=== PATIENT | male | born 1955 | race Caucasian/White ===

== ENCOUNTER 2020-12-28 09:41 | Inpatient (IN) | payer MEDICARE, BC ==
[2020-12-28] MEDS ORDERED: Fluticasone Propionate Nasal Spray 16 GM Bottle NASBOTH PRN (15:40)
[2020-12-28] MEDS ORDERED: Acetaminophen 500 MG Tab PO PRN (15:40)
[2020-12-28] MEDS ORDERED: Carboxymethylcellulose Sodium 0.5% Ophth Soln 15 ML Bottle EYEBOTH PRN (16:00)
[2020-12-28] MEDS: Omeprazole 20 MG Cap.CR PO SCH (17:22)
[2020-12-28] MEDS: Gabapentin 300 MG Cap PO SCH ×2 (17:22→20:22)
[2020-12-28] MEDS: Acetaminophen/oxyCODONE 325-5 MG Tab PO PRN (17:53)
[2020-12-28] MEDS ORDERED: Menthol 7.6 MG Sugar Free Lozenge PO PRN (18:24)
[2020-12-28] MEDS: guaiFENesin/Dextromethorphan 100-10 MG/5 ML Soln 5 ML Cup PO PRN (19:08)
[2020-12-28] MEDS: Pramipexole 0.5 MG Tab PO SCH (19:08)
[2020-12-28] MEDS: Fish Oil/Omega-3 Fatty Acids 1 Gm Cap PO SCH (20:22)
[2020-12-28] MEDS: Magnesium Oxide 500 MG Tab PO SCH (20:22)
[2020-12-28] MEDS: Primidone 50 MG Tab PO SCH (20:22)
[2020-12-28] MEDS: atorvaSTATin 40 MG Tab PO SCH (20:23)
[2020-12-28] MEDS: Metoprolol Tartrate 50 MG Tab PO SCH (20:23)
[2020-12-28] MEDS: Simethicone 80 MG Tab.Chew PO PRN (21:56)
[2020-12-29] MEDS: Gabapentin 300 MG Cap PO SCH ×5 (00:09→19:32)
[2020-12-29] MEDS: Simethicone 80 MG Tab.Chew PO PRN ×4 (00:09→19:37)
[2020-12-29] MEDS: guaiFENesin/Dextromethorphan 100-10 MG/5 ML Soln 5 ML Cup PO PRN ×4 (00:09→21:40)
[2020-12-29] MEDS: FLUTICASONE PROPIONATE NASBOTH PRN ×2 (00:17→21:42)
[2020-12-29] MEDS: Metoprolol Tartrate 50 MG Tab PO SCH ×2 (08:20→21:40)
[2020-12-29] MEDS: Potassium Chloride 20 MEQ Tab.ER PO SCH (08:20)
[2020-12-29] MEDS: metFORMIN 500 MG Tab.ER PO SCH (08:20)
[2020-12-29] MEDS: Aspirin 81 MG Tab.EC PO SCH (08:20)
[2020-12-29] MEDS: Cyanocobalamin (Vitamin B12) 500 MCG Tab PO SCH (08:21)
[2020-12-29] MEDS: Omeprazole 20 MG Cap.CR PO SCH ×2 (08:21→17:04)
[2020-12-29] MEDS: Multivitamins with Minerals/Iron/Folic Acid/Lycopene Tab PO SCH (08:21)
[2020-12-29] MEDS: Losartan 50 MG Tab PO SCH (08:21)
[2020-12-29] MEDS: Fish Oil/Omega-3 Fatty Acids 1 Gm Cap PO SCH ×2 (08:21→21:37)
[2020-12-29] MEDS: Primidone 50 MG Tab PO SCH ×2 (08:22→21:37)
[2020-12-29] MEDS: Magnesium Oxide 500 MG Tab PO SCH ×3 (08:22→21:37)
[2020-12-29] MEDS: Tamsulosin 0.4 MG Cap.ER PO SCH (08:22)
[2020-12-29] MEDS: Pramipexole 0.5 MG Tab PO SCH ×2 (08:28→19:32)
[2020-12-29] MEDS: Acetaminophen/oxyCODONE 325-5 MG Tab PO PRN ×2 (08:29→21:39)
[2020-12-29] MEDS: [UNRECOGNIZED DRUG - REMARK] PO SCH (08:34)
[2020-12-29 08:35] LABS: ANION GAP 11.8 mmol/L (5-15); CHLORIDE,CL 99 mmol/L (98-107); SODIUM,NA 139 mmol/L (136-145)
[2020-12-29] MEDS: hydrOXYzine HCl 25 MG Tab PO PRN ×2 (08:42→21:43)
--- NOTE | 2020-12-29 09:22 | PCM.HP.2 ---
H&P History of Present Illness - General Date of Service: 12/29/20 Admit Problem/Dx: Admission Diagnosis/Problem Admission Diagnosis/Problem "Edema, generalized " Source of Information: Patient, Old Records, RN Notes Reviewed History Limitations: Reports: No Limitations Generalized Pain Score (Numeric/FACES): 3 - Related Data Allergies/Adverse Reactions: Allergies Allergy/AdvReac Type Severity Reaction Status Date / Time Penicillins Allergy Swelling Verified 12/29/20 05:42 temazepam [From Restoril] Allergy confusion, Verified 12/29/20 05:42 agitation Home Medications: Home Meds Multivitamin [Daily Multiple Vitamin] 1 tab PO DAILY 10/01/16 [History] Losartan Potassium 100 mg PO DAILY 03/06/20 [History] [place]-3S/DHA/Epa/Fish Oil [[place]-3 Fish Oil 1,000 mg Sfgl] 1,000 mg PO BID 03/06/20 [History] Omeprazole 40 mg PO BIDMEALS 03/06/20 [History] Pramipexole [Mirapex] 0.25 mg PO Q12HR 03/06/20 [History] Primidone 50 mg PO Q12HR 03/06/20 [History] hydrOXYzine HCL [Hydroxyzine HCl] 25 mg PO Q6HR PRN 03/06/20 [History] Gabapentin [Neurontin] 600 mg PO 5XDAY@00,08,12,16,20 12/24/20 [History] Loperamide HCl [Imodium A-D] 2 mg PO ASDIRECTED 12/24/20 [History] Fluticasone Propionate [Flonase] 1 spray NASBOTH BID PRN 12/25/20 [History] Acetaminophen [Acetaminophen Extra Strength] 1,000 mg PO Q6HR PRN 12/28/20 [History] Aspirin [Halfprin] 81 mg PO DAILY 12/28/20 [History] Carboxymethylcellulose Sodium [Artificial Tears] 1 drop EYEBOTH Q4HR PRN 12/28/20 [History] Cyanocobalamin (Vitamin B-12) [Vitamin B-12] 250 mcg PO DAILY 12/28/20 [History] Iron Polysaccharide Complex [Poly-Iron] 150 mg PO ASDIRECTED 12/28/20 [History] Magnesium 500 mg BID 12/28/20 [History] Metoprolol Tartrate 100 mg PO BID 12/28/20 [History] Ondansetron [Zofran ODT] 4 mg PO Q4HR PRN 12/28/20 [History] Potassium Chloride 20 meq PO DAILY 12/28/20 [History] Tamsulosin [Tamsulosin 24 Hr] 0.4 mg PO DAILY 12/28/20 [History] Torsemide [Demadex] 20 mg PO DAILY 12/28/20 [History] atorvaSTATin Calcium [Lipitor] 40 mg PO BEDTIME 12/28/20 [History] metFORMIN HCl [Metformin HCl ER] 1,500 mg PO DAILY 12/28/20 [History] oxyCODONE HCl/Acetaminophen [Oxycodone-Acetaminophen 5-325] 1 each PO BID PRN 12/28/20 [History] Past Medical History HEENT History: Reports: Impaired Vision, Sinusitis, Other (See Below) Other HEENT History: Patient wears reading glasses. No diabetic retinopathy. Chronic bilateral tinnitus. Cardiovascular History: Reports: Arrhythmia, CAD, Cardiomyopathy, Heart Failure, High Cholesterol, Hypertension, [place], Syncope, Other (See Below) Other Cardiovascular History: First-degree AV block. Non-STEMI on 10/02/2016 with no procedures performed, including angiogram, etc.. Dyslipidemia. Recurrent syncopal episodes in 2016 possibly secondary to his heart disease as above. Respiratory History: Reports: Bronchitis, Recurrent, Intubation, Previous, Sleep Apnea, SOB, Other (See Below) Other Respiratory History: Patient does not use CPAP. Gastrointestinal History: Reports: Cholelithiasis, Colon Polyp, Diverticulosis, GERD, Other (See Below) Other Gastrointestinal History: Chronic ascites. Necrotic cholelithiasis with borderline sepsis in March 2020. Recurrent multiple colonic polypsbenign?. Benign hepatic cysts by CT scan. Genitourinary History: Reports: BPH, Chronic Renal Insuffiency, Diabetic Nephropathy, Prostate Disorder, Urinary Incontinence Musculoskeletal History: Reports: Arthritis, Back Pain, Chronic, Neck Pain, Ch ronic, Osteoarthritis Neurological History: Reports: Neuropathy, Diabetic, Neuropathy, Peripheral, Other (See Below) Other Neuro History: Benign resting tremor. Psychiatric History: Reports: Addiction, Anxiety, Depression, Other (See Below) Other Psychiatric History: Chronic narcotic use secondary to chronic pain syndrome and neuropathy. Endocrine/Metabolic History: Reports: Diabetes, Type II, Obesity/BMI 30+, Other (See Below) Other Endocrine/Metabolic History: Morbid obesity. Hypocalcemia. Hyponatremia. Immunologic History: Reports: None Oncologic (Cancer) History: Reports: None Dermatologic History: Reports: Other (See Below) Other Dermatologic History: Dry skin - Infectious Disease History Infectious Disease History: Reports: Chicken Pox, Measles, Mumps - Past Surgical History Head Surgeries/Procedures: Reports: None HEENT Surgical History: Reports: Adenoidectomy, Oral Surgery, Tonsillectomy, Other (See Below) Other HEENT Surgeries/Procedures: [place] teeth extraction x4. Additional teeth extractions. Tonsillectomy and adenoidectomy at age 4. Cardiovascular Surgical History: Reports: None Respiratory Surgical History: Reports: None GI Surgical History: Reports: Cholecystectomy, Colonoscopy, Polypectomy, Other (See Below) Other GI Surgeries/Procedures: Multiple polypectomies for benign disease with last colonoscopy in 2018. Male Surgical History: Reports: Circumcision, Other (See Below) Other Male Surgeries/Procedures: Circumcision as an . Bilateral hydrocele repair in about 2009. Endocrine Surgical History: Reports: None Neurological Surgical History: Reports: None Musculoskeletal Surgical History: Reports: Joint Replacement, Knee Replacement, Other (See Below) Other Musculoskeletal Surgeries/Procedures:: Bilateral TKA in 2014. Right thumb tendon repair in about 1979. Oncologic Surgical History: Reports: None Dermatological Surgical History: Reports: None - Past Imaging History Past Imaging History: Reports: CAT Scan (CT of the abdomen and pelvis on 03/06/2020 and 09/27/2014.). Denies: Angiography, Cardiac Echo Social & Family History - Family History HEENT: Reports: None Cardiac: Reports: Arrhythmia, Hypertension, Other (See Below) Other Cardiac Family History: Brother with hyperlipidemia. Brother with jose tricular tachycardia on subsequent asystole? Respiratory: Reports: None GI: Reports: Colon Polyps, Other (See Below) Other GI Family History: Mother with colon cancer as below. : Reports: None OBGYN: Reports: None Musculoskeletal: Reports: None Neurological: Reports: CVA, Parkinson's, Other (See Below) Other Neurological Family History: Father with Parkinson's disease. Brother with recurrent CVA. Endocrine/Metabolic: Reports: None Hematologic: Reports: None Immunologic: Reports: None Dermatologic: Reports: None Oncologic: Reports: Colon, Lymphoma, Ovarian, Skin, Uterine, Other (See Below) Other Oncologic Family History: Sister with fatal lymphoma in her 60s. Another sister with unknown type of skin cancer and breast cancer. Mother with multiple cancers including breast cancer, ovarian cancer and colon cancer x2 with fatal colon surgery. - Tobacco Use Tobacco Use Status *Q: Never Tobacco User - Caffeine Use Caffeine Use: Reports: Coffee, Soda - Alcohol Use Days Per Week of Alcohol Use: 5 Number of Drinks Per Day: 4 Total Drinks Per Week: 20 - Recreational Drug Use Recreational Drug Use: No - Living Situation & Occupation Living situation: Reports: (1982, 2 children), with Family () Occupation: Disabled (Disabled secondary to his chronic neuropathy, osteoarthritis, chronic pain syndrome. Retired [employer].) H&P Review of Systems - Review of Systems: Review Of Systems: See Below General: Reports: Weakness, Fatigue. Denies: Fever, Chills, Weight Loss HEENT: Reports: Rhinitis, Post Nasal Drip. Denies: Sinus Congestion, Sore T hroat Pulmonary: Reports: Cough, Sputum. Denies: Shortness of Breath, Wheezing Cardiovascular: Reports: Edema (per baseline). Denies: Chest Pain, Pa lpitations, Orthopnea, PND Gastrointestinal: Reports: Other (belching). Denies: Abdominal Pain, Constipation, Diarrhea, Nausea Genitourinary: Denies: Dysuria, Frequency, Burning, Urgency, Hematuria, Flank Pain Skin: Reports: No Symptoms Psychiatric: Reports: No Symptoms Neurological: Reports: Numbness, Tremors, Weakness, Other (neuropathy to BLE and bilateral hands). Denies: Confusion, Dizziness Hematologic/Lymphatic: Reports: No Symptoms Immunologic: Reports: No Symptoms Exam - Exam Exam: See Below - Vital Signs Vital Signs: Last Vital Signs Temp 97.6 F 12/29/20 09:00 Pulse 68 12/29/20 09:00 Resp 20 12/29/20 09:00 BP 147/94 H 12/29/20 09:00 Pulse Ox 95 12/29/20 09:00 Weight: 340 lb 4.8 oz - Exam General: Alert, Oriented HEENT: Posterior Pharynx Clear Neck: Supple, Trachea Midline Lungs: Clear to Auscultation, Normal Respiratory Effort Cardiovascular: Regular Rate, Regular Rhythm GI/Abdominal Exam: Normal Bowel Sounds, Soft, Non-Tender, Other (belching) (Male) Exam: Deferred Rectal (Males) Exam: Deferred Extremities: Pedal Edema (2+ pitting edema to BLE) Skin: Warm, Dry, Intact Neuro Extensive - Mental Status: Alert, Oriented x3 Neuro Extensive - Motor, Sensory, Reflexes: Abnormal Sensation, Abnormal Light Touch, Tremor (bilateral upper extremities), Motor/Sensory Deficits (lack on sensation to Bilateral lower extremities from knee distally) Psychiatric: Alert, Normal Affect Physical Exam Comments:: generalized weakness, deconditioning - Patient Data Lab Results Last 24 hrs: Laboratory Results - last 24 hr 12/28/20 12/29/20 Range/Units 17:20 08:00 Sodium 139 (136-145) mmol/L Potassium 3.6 (3.5-5.1) mmol/L Chloride 99 (98-107) mmol/L Carbon Dioxide 31.8 (21.0-32.0) mmol/L Anion Gap 11.8 (5-15) mmol/L BUN 6 L (7-18) mg/dL Creatinine 1.06 (0.51-1.17) mg/dL Est Cr Clr Drug Dosing 76.26 mL/min Estimated GFR (MDRD) > 60 mL/min Glucose 116 (70-140) mg/dL POC Glucose 143 H (74-100) mg/dL Calcium 8.2 L (8.7-10.3) mg/dL Magnesium 1.7 L (1.8-2.4) mg/dL Total Bilirubin 0.5 (0.2-1.0) mg/dL AST 54 H (15-37) U/L ALT 27 (14-63) U/L Alkaline Phosphatase 213 H (46-116) U/L Total Protein 6.6 (6.4-8.2) g/dL Albumin 2.24 L (3.40-5.00) g/dL Result Diagrams: 12/29/20 08:00 Sepsis Event Note - Evaluation Sepsis Screening Result: No Definite Risk - Focused Exam Vital Signs: Vital Signs Temp Pulse Pulse Resp BP BP Pulse Ox 12/29/20 09:00 97.6 F 68 20 147/94 H 95 12/29/20 08:21 147/94 H 12/29/20 08:20 68 147/94 H - Problem List (1) Physical deconditioning SNOMED Code(s): 62187715594285 ICD Code: R53.81 - OTHER MALAISE Status: Acute Current Visit: Yes (2) Weakness SNOMED Code(s): 09811934 ICD Code: R53.1 - WEAKNESS Status: Acute Current Visit: Yes (3) Hypomagnesemia SNOMED Code(s): 532972722 ICD Code: E83.42 - HYPOMAGNESEMIA Status: Acute Priority: Medium Current Visit: No Onset Date: 12/24/20 Problem Details: Newly diagnosed. Magnesium sulfate 4 g IV initiated shortly after admission with initiation of oral magnesium oxide therapy on 12/25 a.m. Note additional IV magnesium infusion shortly prior to patient's transfer as above. Continue to observe closely by accepting providers. (4) Hypocalcemia SNOMED Code(s): 4718029 ICD Code: E83.51 - HYPOCALCEMIA Status: Chronic Priority: Medium Current Visit: No Problem Details: Observe for now. Chronic problem. Observe closely by accepting providers. Problem List Initiated/Reviewed/Updated: Yes Orders Last 24hrs: Active Orders 24 hr Category Date Time Status Patient Status [ADT] Routine ADT 12/28/20 12:50 Active Blood Glucose Check, Bedside [RC] BIDMEALS Care 12/28/20 12:50 Active Communication Order [RC] DAILY Care 12/28/20 12:49 Active Height and Weight [RC] 0700 Care 12/28/20 12:53 Active Incentive Spirometry [RT Incentive Spirometry] [RC] Care 12/28/20 23:26 Active Q2HWA Intake and Output [RC] 1400,2200,0600 Care 12/28/20 12:50 Active Oxygen Therapy [RC] PRN Care 12/28/20 12:50 Active Up With Assistance [RC] DAILY Care 12/28/20 12:50 Active Vital Signs [RC] Q12HR Care 12/28/20 12:50 Active PT Evaluation and Treatment [CONS] Routine Cons 12/28/20 12:50 Active 2 Gram Sodium Diet [DIET] Diet 12/29/20 Breakfast Active Acetaminophen [Tylenol Extra Strength] Med 12/28/20 15:40 Active 500 mg PO Q6H PRN Acetaminophen/oxyCODONE [Percocet 325-5 MG] Med 12/28/20 15:40 Active 1 tab PO BID PRN Aspirin [Halfprin] Med 12/29/20 09:00 Active 81 mg PO DAILY Carboxymethylcellulose Sodium [Refresh Tears 0.5%] Med 12/28/20 16:00 Active 1 ml EYEBOTH Q4HR PRN Cyanocobalamin (Vitamin B12) [Vitamin B12] Med 12/29/20 09:00 Active 250 mcg PO DAILY Dextromethorphan/guaiFENesin [Robitussin DM] Med 12/28/20 18:15 Active 10 ml PO Q6H PRN FA/Lycopene/Lut/MV,Ca,Iron,Min [Centrum] Med 12/29/20 09:00 Active 1 tab PO DAILY Fish Oil/[place]-3 Fatty Acids [Fish Oil] Med 12/28/20 21:00 Active 1 gm PO BID Fluticasone Propionate [Flonase] Med 12/28/20 21:00 Active 0 gm NASBOTH BID PRN Gabapentin [Neurontin] Med 12/28/20 16:00 Active 600 mg PO 5XDAY@00,08,12,16,20 Iron Polysaccharides Complex [Ferrex 150] Med 12/30/20 09:00 Active 150 mg PO Q48H Loperamide [Imodium] Med 12/28/20 16:05 Active 2 mg PO ASDIRECTED PRN Losartan [Cozaar] Med 12/29/20 09:00 Active 100 mg PO DAILY Magnesium Oxide Med 12/28/20 21:00 Active 500 mg PO BID Menthol [[place] Sugar Free] Med 12/28/20 18:24 Active 1 stephen PO ASDIRECTED PRN Metoprolol Tartrate [Lopressor] Med 12/28/20 21:00 Active 100 mg PO BID Non-Formulary Medication [NF Drug] Med 12/29/20 09:00 Active 1 each PO DAILY Omeprazole Med 12/28/20 17:30 Active 40 mg PO 0730,1730 Ondansetron [Zofran ODT] Med 12/28/20 15:40 Active 4 mg PO Q4HR PRN Potassium Chloride [Klor-Con M20] Med 12/29/20 09:00 Active 20 meq PO DAILY Pramipexole [Mirapex] Med 12/28/20 19:00 Active 0.25 mg PO 0900,1900 Primidone [Mysoline] Med 12/28/20 21:00 Active 50 mg PO BID Simethicone Med 12/28/20 21:31 Active 80 mg PO QID PRN Tamsulosin [Flomax] Med 12/29/20 09:00 Active 0.4 mg PO DAILY atorvaSTATin [Lipitor] Med 12/28/20 21:00 Active 40 mg PO BEDTIME hydrOXYzine HCL [Atarax] Med 12/28/20 15:40 Active 25 mg PO Q6HR PRN metFORMIN [Glucophage XR] Med 12/29/20 09:00 Active 1,500 mg PO DAILY Resuscitation Status Routine Resus Stat 12/28/20 12:50 Ordered Medication Orders Acetaminophen (Tylenol Extra Strength) 500 mg PO Q6H PRN PRN Reason: Pain (mild 1-3) Artificial Tears (Refresh Tears 0.5%) 1 ml EYEBOTH Q4HR PRN PRN Reason: Dry Eyes Aspirin (Halfprin) 81 mg PO DAILY [facility] Last Admin: 12/29/20 08:20 Dose: 81 mg Documented by: ABI Atorvastatin Calcium (Lipitor) 40 mg PO BEDTIME [facility] Last Admin: 12/28/20 20:23 Dose: 40 mg Documented by: LIA Cyanocobalamin (Vitamin B12) 250 mcg PO DAILY [facility] Last Admin: 12/29/20 08:21 Dose: 250 mcg Documented by: ABI Fish Oil (Fish Oil) 1 gm PO BID [facility] Last Admin: 12/29/20 08:21 Dose: 1 gm Documented by: Admin: 12/28/20 20:22 Dose: 1 gm Documented by: LIA Fluticasone Propionate (Flonase) 0 gm NASBOTH BID PRN PRN Reason: Allergies Last Admin: 12/29/20 00:17 Dose: 1 spray Documented by: LIA Gabapentin (Neurontin) 600 mg PO 5XDAY@00,08,12,16,20 [facility] Last Admin: 12/29/20 08:21 Dose: 600 mg Documented by: Admin: 12/29/20 00:09 Dose: 600 mg Documented by: Admin: 12/28/20 20:22 Dose: 600 mg Documented by: Admin: 12/28/20 17:22 Dose: 600 mg Documented by: CASS Guaifenesin/Phenylephrine HCl (Robitussin Dm) 10 ml PO Q6H PRN PRN Reason: Cough Last Admin: 12/29/20 00:09 Dose: 10 ml Documented by: Admin: 12/28/20 19:08 Dose: 10 ml Documented by: CASS Hydroxyzine HCl (Atarax) 25 mg PO Q6HR PRN PRN Reason: Nausea Last Admin: 12/29/20 08:42 Dose: 25 mg Documented by: ABI Loperamide HCl (Imodium) 2 mg PO ASDIRECTED PRN PRN Reason: DIARRHEA Losartan Potassium (Cozaar) 100 mg PO DAILY [facility] Last Admin: 12/29/20 08:21 Dose: 100 mg Documented by: ABI Magnesium Oxide (Magnesium Oxide) 500 mg PO BID [facility] Last Admin: 12/29/20 08:22 Dose: 500 mg Documented by: Admin: 12/28/20 20:22 Dose: 500 mg Documented by: LIA Menthol ([place] Sugar Free) 1 stephen PO ASDIRECTED PRN PRN Reason: Cough Metformin HCl (Glucophage Xr) 1,500 mg PO DAILY [facility] Last Admin: 12/29/20 08:20 Dose: 1,500 mg Documented by: ABI Metoprolol Tartrate (Lopressor) 100 mg PO BID [facility] Last Admin: 12/29/20 08:20 Dose: 100 mg Documented by: Admin: 12/28/20 20:23 Dose: 100 mg Documented by: LIA Multivitamins/Minerals (Centrum) 1 tab PO DAILY [facility] Last Admin: 12/29/20 08:21 Dose: 1 tab Documented by: ABI Torsemide 20 Mg Tab (- Non Form) 1 each PO DAILY [facility] Last Admin: 12/29/20 08:34 Dose: 1 each Documented by: ABI Omeprazole (Omeprazole) 40 mg PO 0730,1730 [facility] Last Admin: 12/29/20 08:21 Dose: 40 mg Documented by: Admin: 12/28/20 17:22 Dose: 40 mg Documented by: CASS Ondansetron HCl (Zofran Odt) 4 mg PO Q4HR PRN PRN Reason: Nausea/Vomiting Oxycodone/Acetaminophen (Percocet 325-5 Mg) 1 tab PO BID PRN PRN Reason: Pain (severe 7-10) Last Admin: 12/29/20 08:29 Dose: 1 tab Documented by: Admin: 12/28/20 17:53 Dose: 1 tab Documented by: CASS Polysaccharide Iron Complex (Ferrex 150) 150 mg PO Q48H [facility] Potassium Chloride (Klor-Con M20) 20 meq PO DAILY [facility] Last Admin: 12/29/20 08:20 Dose: 20 meq Documented by: ABI Pramipexole Dihydrochloride (Mirapex) 0.25 mg PO 0900,1900 [facility] Last Admin: 12/29/20 08:28 Dose: 0.25 mg Documented by: Admin: 12/28/20 19:08 Dose: 0.25 mg Documented by: CASS Primidone (Mysoline) 50 mg PO BID [facility] Last Admin: 12/29/20 08:22 Dose: 50 mg Documented by: Admin: 12/28/20 20:22 Dose: 50 mg Documented by: LIA Simethicone (Simethicone) 80 mg PO QID PRN PRN Reason: Heartburn and/or Stomach upset Last Admin: 12/29/20 08:33 Dose: 80 mg Documented by: Admin: 12/29/20 00:09 Dose: 80 mg Documented by: Admin: 12/28/20 21:56 Dose: 80 mg Documented by: LIA Tamsulosin HCl (Flomax) 0.4 mg PO DAILY [facility] Last Admin: 12/29/20 08:22 Dose: 0.4 mg Documented by: ABI Assessment/Plan Comment:: This is a 65 year old male admitted to the 12/28/2020 for swing bed and rehabilitative cares. Patient presented to [facility] on 12/24/2020 for progressive shortness of breath and weakness. He was admitted at that time with a primary problem of acute CHF exacerbation with also noted el ectrolytes disturbances: hypokalemia, hypomagnesemia, hypocalcemia. Patient was treated for CHF exacerbation with IV diuresis (Lasix) and electrolyte replacement. On the night of 12/25/2020 patient began having long runs of ventricular tachycardia with a torsades de pointes pattern. He reportedly had 7 of these episodes which were completely asymptomatic with no associated chest pain or other anginal symptoms. Patient was transferred to [facility] on 12/26/2020 due to concerns of recurrent Torsades. Work up showed that one lead showed torsades pattern with other leads showed NSR in 80's. He was asymptomatic before, during, and after the episode. He did not have episodes of torsades or concerning events on telemetry. Cardiology and EP were consulted and reviewed and felt episodes were due to artifact and not true VT. Despite artifact, aggressive electrolyte monitoring and replacement recommended. During hospitalization, UA was done with noted microscopic hematuria >30 RBCs. Patient working with PT and OT during hospitalization and due to general deconditioning and weakness continued physi julio therapy at a low intensity setting upon discharge recommended. Hospitalization problems: #Deconditioning/weakness- PT for ongoing therapy. #Microscopic hematuria- noted during recent hospitalization with RBCs >30. No reported gross hematuria. last UA in 2016 with RBC 3-5. no other UA on file. will need repeat UA in 1 month. If still noted microscopic hematuria will need further hematuria work-up as an outpatient. #hypomagnesemia- Magnesium 1.7 today. On PO magnesium supplementation mag ox 500 mg BID, will increase to TID. patient tolerating well without GI side effects # hypokalemia- stable. on supplementation. # Cough- likely viral URI. vitals stable. afebrile. normal O2. Lungs clear. Recent COVID test negative. chest x-ray 12/26/2020- Low lung volume. No pulmonary edema or infiltrate. Continue Robitussin PRN. may use cough drops PRN. Chronic conditions: # HFrEF: Continue Torsemide 20mg daily. Daily weights. Echo done 12/26/2020 with normal LV systolic function. EF improved to 55%. unable to assess LV diastolic function. ALAINA stockings for edema # HTN: Continue Losartan 100mg,metoprolol tartrate 100mg BID. # GERD with esophagitis: Omeprazole 40mg BID.Controlled. # Hepatic steatosis/ Transaminitis / elevated alkaline phosphatase: chronic alcohol use/abuse. no evidence of withdrawal or DT symptoms during recent hos pitalization. continue to monitor withdrawal symptoms. # CKD, stage 3 # BPH: Tamsulosin 0.4mg daily # Anemia / Macrocytosis: Niferex every other day. B12 or folate not deficient. History of alcohol abuse # DMT2: Controlled. Metformin 1000mg daily. Last A1C 5.7. # HLD: Atorvastatin 40mg. # Hypocalcemia # Obesity- BMI 46 # RLS: Pramipexole 0.25mgBID.Iron supplementation. Controlled. # Tremor: Primidone 50mg BID. # Neuropathy / Chronic lumbar back pain: On pain contract with Dr. Lizzy lund. Percocet was receiving QID in [facility] however was previously on BID dosing. patient reports increased pain/discomfort and neuropathic pain. Will change to TID PRN (along with hydroxyzine 25mg prn), gabapentin 600mg 5x/d, acetaminophen 1000mg PO TID.Persistentin upper and lower extremities. Followed by pain management with history facet injection 04/11/19 without improvement and history SLADE 05/10/19 with minimal improvement. Seen by [place] in June 2020 for neuropathy with recommendations to start PT, duloxetine. Patient did not tolerate duloxetine and did not start PT. Misc.medications:B12, fish oil, MV, artificial tears, ondansetron prn. Code: Full Disposition: Swing bed for continued rehab/therapy.
[2020-12-29] MEDS: Acetaminophen 500 MG Tab PO SCH ×2 (13:44→22:00)
[2020-12-29] MEDS: Loperamide 2 MG Cap PO PRN ×2 (18:25→19:29)
[2020-12-29] MEDS: atorvaSTATin 40 MG Tab PO SCH (21:43)
[2020-12-30] MEDS: Gabapentin 300 MG Cap PO SCH ×5 (00:23→19:39)
[2020-12-30] MEDS: Acetaminophen 500 MG Tab PO SCH ×4 (00:57→20:49)
[2020-12-30] MEDS: Simethicone 80 MG Tab.Chew PO PRN ×4 (00:58→20:48)
[2020-12-30] MEDS: Loperamide 2 MG Cap PO PRN ×2 (06:20→20:48)
[2020-12-30] MEDS: guaiFENesin/Dextromethorphan 100-10 MG/5 ML Soln 5 ML Cup PO PRN ×2 (06:27→17:05)
[2020-12-30] MEDS: FLUTICASONE PROPIONATE NASBOTH PRN ×2 (06:28→19:38)
[2020-12-30] MEDS: Omeprazole 20 MG Cap.CR PO SCH ×2 (06:46→17:32)
[2020-12-30] MEDS: Aspirin 81 MG Tab.EC PO SCH (08:12)
[2020-12-30] MEDS: metFORMIN 500 MG Tab.ER PO SCH (08:12)
[2020-12-30] MEDS: Iron Polysaccharides Complex 150 MG Cap PO SCH (08:12)
[2020-12-30] MEDS: Fish Oil/Omega-3 Fatty Acids 1 Gm Cap PO SCH ×2 (08:13→20:48)
[2020-12-30] MEDS: Magnesium Oxide 500 MG Tab PO SCH ×3 (08:13→20:48)
[2020-12-30] MEDS: Potassium Chloride 20 MEQ Tab.ER PO SCH (08:14)
[2020-12-30] MEDS: Primidone 50 MG Tab PO SCH ×2 (08:14→20:48)
[2020-12-30] MEDS: Cyanocobalamin (Vitamin B12) 500 MCG Tab PO SCH (08:14)
[2020-12-30] MEDS: Multivitamins with Minerals/Iron/Folic Acid/Lycopene Tab PO SCH (08:15)
[2020-12-30] MEDS: Losartan 50 MG Tab PO SCH (08:15)
[2020-12-30] MEDS: Tamsulosin 0.4 MG Cap.ER PO SCH (08:15)
[2020-12-30] MEDS: Metoprolol Tartrate 50 MG Tab PO SCH ×2 (08:15→20:48)
[2020-12-30] MEDS: [UNRECOGNIZED DRUG - REMARK] PO SCH (08:16)
[2020-12-30] MEDS: Pramipexole 0.5 MG Tab PO SCH ×2 (08:20→19:39)
[2020-12-30] MEDS: hydrOXYzine HCl 25 MG Tab PO PRN ×2 (09:34→20:57)
[2020-12-30] MEDS: Acetaminophen/oxyCODONE 325-5 MG Tab PO PRN ×2 (09:34→20:54)
[2020-12-30] MEDS: atorvaSTATin 40 MG Tab PO SCH (20:49)
[2020-12-31] MEDS: guaiFENesin/Dextromethorphan 100-10 MG/5 ML Soln 5 ML Cup PO PRN ×3 (00:01→20:36)
[2020-12-31] MEDS: Simethicone 80 MG Tab.Chew PO PRN ×3 (04:17→17:13)
[2020-12-31] MEDS: Omeprazole 20 MG Cap.CR PO SCH ×2 (07:50→17:12)
[2020-12-31] MEDS: [UNRECOGNIZED DRUG - REMARK] PO SCH (08:16)
[2020-12-31] MEDS: Metoprolol Tartrate 50 MG Tab PO SCH ×2 (08:16→20:35)
[2020-12-31] MEDS: metFORMIN 500 MG Tab.ER PO SCH (08:17)
[2020-12-31] MEDS: Magnesium Oxide 500 MG Tab PO SCH ×3 (08:17→20:35)
[2020-12-31] MEDS: Fish Oil/Omega-3 Fatty Acids 1 Gm Cap PO SCH ×2 (08:18→20:35)
[2020-12-31] MEDS: Multivitamins with Minerals/Iron/Folic Acid/Lycopene Tab PO SCH (08:18)
[2020-12-31] MEDS: Acetaminophen 500 MG Tab PO SCH ×3 (08:18→20:35)
[2020-12-31] MEDS: Potassium Chloride 20 MEQ Tab.ER PO SCH (08:19)
[2020-12-31] MEDS: Losartan 50 MG Tab PO SCH (08:19)
[2020-12-31] MEDS: Primidone 50 MG Tab PO SCH ×2 (08:19→21:38)
[2020-12-31] MEDS: Gabapentin 300 MG Cap PO SCH ×6 (08:19→23:27)
[2020-12-31] MEDS: Aspirin 81 MG Tab.EC PO SCH (08:19)
[2020-12-31] MEDS: Tamsulosin 0.4 MG Cap.ER PO SCH (08:20)
[2020-12-31] MEDS: Cyanocobalamin (Vitamin B12) 500 MCG Tab PO SCH (08:20)
[2020-12-31] MEDS: FLUTICASONE PROPIONATE NASBOTH PRN ×2 (08:27→20:00)
[2020-12-31] MEDS: Pramipexole 0.5 MG Tab PO SCH ×2 (08:27→19:57)
[2020-12-31] MEDS: Acetaminophen/oxyCODONE 325-5 MG Tab PO PRN ×2 (10:54→21:18)
[2020-12-31] MEDS: hydrOXYzine HCl 25 MG Tab PO PRN ×2 (10:55→21:19)
[2020-12-31] MEDS: Loperamide 2 MG Cap PO PRN ×2 (11:57→18:59)
[2020-12-31] MEDS: atorvaSTATin 40 MG Tab PO SCH (20:35)
[2021-01-01] MEDS: Simethicone 80 MG Tab.Chew PO PRN ×4 (04:31→20:54)
[2021-01-01] MEDS: guaiFENesin/Dextromethorphan 100-10 MG/5 ML Soln 5 ML Cup PO PRN ×2 (05:51→22:35)
[2021-01-01] MEDS: Omeprazole 20 MG Cap.CR PO SCH ×2 (07:33→17:27)
[2021-01-01] MEDS: Fish Oil/Omega-3 Fatty Acids 1 Gm Cap PO SCH ×2 (08:48→20:53)
[2021-01-01] MEDS: Cyanocobalamin (Vitamin B12) 500 MCG Tab PO SCH (08:48)
[2021-01-01] MEDS: Metoprolol Tartrate 50 MG Tab PO SCH ×2 (08:49→20:58)
[2021-01-01] MEDS: Losartan 50 MG Tab PO SCH (08:49)
[2021-01-01] MEDS: metFORMIN 500 MG Tab.ER PO SCH (08:49)
[2021-01-01] MEDS: Tamsulosin 0.4 MG Cap.ER PO SCH (08:50)
[2021-01-01] MEDS: Potassium Chloride 20 MEQ Tab.ER PO SCH (08:50)
[2021-01-01] MEDS: Magnesium Oxide 500 MG Tab PO SCH ×3 (08:50→20:51)
[2021-01-01] MEDS: Acetaminophen 500 MG Tab PO SCH ×3 (08:50→20:53)
[2021-01-01] MEDS: Gabapentin 300 MG Cap PO SCH ×5 (08:51→23:34)
[2021-01-01] MEDS: Pramipexole 0.5 MG Tab PO SCH ×2 (08:51→20:50)
[2021-01-01] MEDS: Aspirin 81 MG Tab.EC PO SCH (08:51)
[2021-01-01] MEDS: Iron Polysaccharides Complex 150 MG Cap PO SCH (08:51)
[2021-01-01] MEDS: Multivitamins with Minerals/Iron/Folic Acid/Lycopene Tab PO SCH (08:51)
[2021-01-01] MEDS: Primidone 50 MG Tab PO SCH ×2 (08:51→20:52)
[2021-01-01] MEDS: [UNRECOGNIZED DRUG - REMARK] PO SCH (08:52)
[2021-01-01] MEDS: FLUTICASONE PROPIONATE NASBOTH PRN ×2 (09:34→22:30)
[2021-01-01] MEDS: Acetaminophen/oxyCODONE 325-5 MG Tab PO PRN ×2 (10:45→23:34)
[2021-01-01] MEDS: hydrOXYzine HCl 25 MG Tab PO PRN ×2 (10:46→23:35)
[2021-01-01] MEDS: Loperamide 2 MG Cap PO PRN (12:14)
[2021-01-01] MEDS: atorvaSTATin 40 MG Tab PO SCH (20:51)
[2021-01-02] MEDS: Simethicone 80 MG Tab.Chew PO PRN ×3 (03:35→17:59)
[2021-01-02] MEDS: Loperamide 2 MG Cap PO PRN ×3 (05:48→20:28)
[2021-01-02] MEDS: Omeprazole 20 MG Cap.CR PO SCH ×2 (07:42→16:41)
[2021-01-02] MEDS: guaiFENesin/Dextromethorphan 100-10 MG/5 ML Soln 5 ML Cup PO PRN ×2 (07:57→17:59)
[2021-01-02] MEDS: Gabapentin 300 MG Cap PO SCH ×5 (08:06→23:34)
[2021-01-02] MEDS: metFORMIN 500 MG Tab.ER PO SCH (08:07)
[2021-01-02] MEDS: Acetaminophen 500 MG Tab PO SCH ×3 (08:08→20:21)
[2021-01-02] MEDS: Torsemide 20 MG Tab PO SCH (08:56)
[2021-01-02] MEDS: Fish Oil/Omega-3 Fatty Acids 1 Gm Cap PO SCH ×2 (08:57→20:21)
[2021-01-02] MEDS: Metoprolol Tartrate 50 MG Tab PO SCH ×2 (08:58→20:22)
[2021-01-02] MEDS: Losartan 50 MG Tab PO SCH (08:58)
[2021-01-02] MEDS: Aspirin 81 MG Tab.EC PO SCH (08:58)
[2021-01-02] MEDS: Tamsulosin 0.4 MG Cap.ER PO SCH (08:59)
[2021-01-02] MEDS: Primidone 50 MG Tab PO SCH ×2 (08:59→20:22)
[2021-01-02] MEDS: Magnesium Oxide 500 MG Tab PO SCH ×3 (08:59→20:22)
[2021-01-02] MEDS: Pramipexole 0.5 MG Tab PO SCH ×2 (09:06→18:00)
[2021-01-02] MEDS: hydrOXYzine HCl 25 MG Tab PO PRN ×2 (09:07→23:34)
[2021-01-02] MEDS: Acetaminophen/oxyCODONE 325-5 MG Tab PO PRN ×2 (09:07→23:34)
[2021-01-02] MEDS: Potassium Chloride 10 MEQ Tab.ER PO SCH (11:32)
[2021-01-02] MEDS: Multivitamins with Minerals/Iron/Folic Acid/Lycopene Tab PO SCH (11:33)
[2021-01-02] MEDS: Cyanocobalamin (Vitamin B12) 500 MCG Tab PO SCH (11:33)
[2021-01-02] MEDS: amLODIPine 2.5 MG Tab PO SCH (11:34)
[2021-01-02] MEDS: FLUTICASONE PROPIONATE NASBOTH PRN (17:54)
[2021-01-02] MEDS: atorvaSTATin 40 MG Tab PO SCH (20:21)
[2021-01-03] MEDS: Simethicone 80 MG Tab.Chew PO PRN ×2 (04:36→16:38)
[2021-01-03] MEDS: Omeprazole 20 MG Cap.CR PO SCH ×2 (06:34→16:41)
[2021-01-03] MEDS: FLUTICASONE PROPIONATE NASBOTH PRN (07:31)
[2021-01-03] MEDS: Gabapentin 300 MG Cap PO SCH ×4 (07:31→21:03)
[2021-01-03] MEDS: guaiFENesin/Dextromethorphan 100-10 MG/5 ML Soln 5 ML Cup PO PRN (07:31)
[2021-01-03] MEDS: amLODIPine 2.5 MG Tab PO SCH (08:25)
[2021-01-03] MEDS: Torsemide 20 MG Tab PO SCH (08:25)
[2021-01-03] MEDS: Losartan 50 MG Tab PO SCH (08:25)
[2021-01-03] MEDS: Aspirin 81 MG Tab.EC PO SCH (08:25)
[2021-01-03] MEDS: Iron Polysaccharides Complex 150 MG Cap PO SCH (08:26)
[2021-01-03] MEDS: Acetaminophen 500 MG Tab PO SCH ×3 (08:26→21:02)
[2021-01-03] MEDS: metFORMIN 500 MG Tab.ER PO SCH (08:27)
[2021-01-03] MEDS: Tamsulosin 0.4 MG Cap.ER PO SCH (08:27)
[2021-01-03] MEDS: Metoprolol Tartrate 50 MG Tab PO SCH ×2 (08:27→21:03)
[2021-01-03] MEDS: Fish Oil/Omega-3 Fatty Acids 1 Gm Cap PO SCH ×2 (08:27→21:00)
[2021-01-03] MEDS: Magnesium Oxide 500 MG Tab PO SCH ×3 (08:28→21:02)
[2021-01-03] MEDS: Primidone 50 MG Tab PO SCH ×2 (08:28→21:02)
[2021-01-03] MEDS: Pramipexole 0.5 MG Tab PO SCH ×2 (08:34→18:15)
[2021-01-03] MEDS: Loperamide 2 MG Cap PO PRN (10:47)
[2021-01-03] MEDS: Acetaminophen/oxyCODONE 325-5 MG Tab PO PRN ×2 (10:47→18:15)
[2021-01-03] MEDS: hydrOXYzine HCl 25 MG Tab PO PRN ×2 (10:47→17:39)
[2021-01-03] MEDS: Potassium Chloride 10 MEQ Tab.ER PO SCH (11:56)
[2021-01-03] MEDS: Multivitamins with Minerals/Iron/Folic Acid/Lycopene Tab PO SCH (11:57)
[2021-01-03] MEDS: Cyanocobalamin (Vitamin B12) 500 MCG Tab PO SCH (11:57)
[2021-01-03] MEDS: atorvaSTATin 40 MG Tab PO SCH (21:00)
[2021-01-04] MEDS: Gabapentin 300 MG Cap PO SCH ×6 (00:17→23:41)
[2021-01-04] MEDS: guaiFENesin/Dextromethorphan 100-10 MG/5 ML Soln 5 ML Cup PO PRN ×2 (03:29→20:23)
[2021-01-04] MEDS: Simethicone 80 MG Tab.Chew PO PRN ×3 (04:11→23:46)
[2021-01-04] MEDS: hydrOXYzine HCl 25 MG Tab PO PRN ×3 (06:27→21:10)
[2021-01-04] MEDS: Acetaminophen/oxyCODONE 325-5 MG Tab PO PRN ×2 (06:28→14:43)
[2021-01-04] MEDS: Omeprazole 20 MG Cap.CR PO SCH ×2 (06:33→17:56)
[2021-01-04] MEDS: Tamsulosin 0.4 MG Cap.ER PO SCH (08:08)
[2021-01-04] MEDS: Aspirin 81 MG Tab.EC PO SCH (08:08)
[2021-01-04] MEDS: metFORMIN 500 MG Tab.ER PO SCH (08:08)
[2021-01-04] MEDS: amLODIPine 2.5 MG Tab PO SCH (08:08)
[2021-01-04] MEDS: Fish Oil/Omega-3 Fatty Acids 1 Gm Cap PO SCH ×2 (08:09→20:24)
[2021-01-04] MEDS: Losartan 50 MG Tab PO SCH (08:09)
[2021-01-04] MEDS: Magnesium Oxide 500 MG Tab PO SCH ×3 (08:09→20:23)
[2021-01-04] MEDS: Torsemide 20 MG Tab PO SCH (08:09)
[2021-01-04] MEDS: Primidone 50 MG Tab PO SCH ×2 (08:10→20:23)
[2021-01-04] MEDS: Metoprolol Tartrate 50 MG Tab PO SCH ×2 (08:11→20:24)
[2021-01-04] MEDS: Acetaminophen 500 MG Tab PO SCH ×3 (08:11→20:23)
[2021-01-04] MEDS: Pramipexole 0.5 MG Tab PO SCH ×2 (08:51→18:04)
--- NOTE | 2021-01-04 10:16 | PCM.SN.2 ---
- Free Text/Narrative Note: Patient with ongoing hypertension despite maximum ARB, diuretics, metoprolol,. In review of patient's recent BP readings and SBP is high indicating high peripheral pressure however not central BP control. With his heart failure could benefit from aldosterone antagonist Aldactone. We will start at 12.5 mg p.o. twice daily titrating upward toward effect/tolerance. Monitor electrolytes current potassium 3.6
[2021-01-04] MEDS: Spironolactone 25 MG Tab PO SCH ×2 (10:49→20:24)
[2021-01-04 11:13] LABS: CHLORIDE,CL 102 mmol/L (98-107); SODIUM,NA 139 mmol/L (136-145)
[2021-01-04] MEDS: Multivitamins with Minerals/Iron/Folic Acid/Lycopene Tab PO SCH (12:10)
[2021-01-04] MEDS: Cyanocobalamin (Vitamin B12) 500 MCG Tab PO SCH (12:10)
[2021-01-04] MEDS: Potassium Chloride 10 MEQ Tab.ER PO SCH (12:10)
[2021-01-04] MEDS: Ondansetron 4 MG Tab.DIS PO PRN (15:21)
[2021-01-04] MEDS: atorvaSTATin 40 MG Tab PO SCH (20:23)
[2021-01-05] MEDS: FLUTICASONE PROPIONATE NASBOTH PRN ×2 (00:08→20:18)
[2021-01-05] MEDS: guaiFENesin/Dextromethorphan 100-10 MG/5 ML Soln 5 ML Cup PO PRN (02:06)
[2021-01-05] MEDS: Loperamide 2 MG Cap PO PRN ×2 (02:13→17:30)
[2021-01-05] MEDS: hydrOXYzine HCl 25 MG Tab PO PRN (03:37)
[2021-01-05] MEDS: Omeprazole 20 MG Cap.CR PO SCH ×3 (06:27→17:29)
[2021-01-05] MEDS: Tamsulosin 0.4 MG Cap.ER PO SCH (08:05)
[2021-01-05] MEDS: Aspirin 81 MG Tab.EC PO SCH (08:06)
[2021-01-05] MEDS: Primidone 50 MG Tab PO SCH ×2 (08:06→20:16)
[2021-01-05] MEDS: Torsemide 20 MG Tab PO SCH (08:06)
[2021-01-05] MEDS: Gabapentin 300 MG Cap PO SCH ×4 (08:06→20:17)
[2021-01-05] MEDS: Iron Polysaccharides Complex 150 MG Cap PO SCH (08:06)
[2021-01-05] MEDS: Magnesium Oxide 500 MG Tab PO SCH ×3 (08:06→20:16)
[2021-01-05] MEDS: Metoprolol Tartrate 50 MG Tab PO SCH ×2 (08:07→20:15)
[2021-01-05] MEDS: Spironolactone 25 MG Tab PO SCH ×2 (08:07→20:15)
[2021-01-05] MEDS: Losartan 50 MG Tab PO SCH (08:07)
[2021-01-05] MEDS: Acetaminophen 500 MG Tab PO SCH ×3 (08:08→20:17)
[2021-01-05] MEDS: amLODIPine 2.5 MG Tab PO SCH (08:08)
[2021-01-05] MEDS: Fish Oil/Omega-3 Fatty Acids 1 Gm Cap PO SCH ×2 (08:08→20:15)
[2021-01-05] MEDS: metFORMIN 500 MG Tab.ER PO SCH (08:08)
[2021-01-05] MEDS: Pramipexole 0.5 MG Tab PO SCH ×2 (08:46→20:16)
[2021-01-05] MEDS: Acetaminophen/oxyCODONE 325-5 MG Tab PO PRN ×2 (08:49→17:30)
[2021-01-05] MEDS: Cyanocobalamin (Vitamin B12) 500 MCG Tab PO SCH (12:20)
[2021-01-05] MEDS: Potassium Chloride 10 MEQ Tab.ER PO SCH (12:21)
[2021-01-05] MEDS: Multivitamins with Minerals/Iron/Folic Acid/Lycopene Tab PO SCH (12:21)
[2021-01-05] MEDS: atorvaSTATin 40 MG Tab PO SCH (20:17)
[2021-01-06] MEDS: Gabapentin 300 MG Cap PO SCH ×6 (00:34→23:53)
[2021-01-06] MEDS: Simethicone 80 MG Tab.Chew PO PRN ×2 (03:21→13:13)
[2021-01-06] MEDS: guaiFENesin/Dextromethorphan 100-10 MG/5 ML Soln 5 ML Cup PO PRN ×2 (04:06→23:53)
[2021-01-06] MEDS: Omeprazole 20 MG Cap.CR PO SCH ×2 (06:36→18:08)
[2021-01-06] MEDS: Tamsulosin 0.4 MG Cap.ER PO SCH (08:12)
[2021-01-06] MEDS: Losartan 50 MG Tab PO SCH (08:12)
[2021-01-06] MEDS: metFORMIN 500 MG Tab.ER PO SCH (08:12)
[2021-01-06] MEDS: Fish Oil/Omega-3 Fatty Acids 1 Gm Cap PO SCH ×2 (08:12→20:31)
[2021-01-06] MEDS: Torsemide 20 MG Tab PO SCH (08:13)
[2021-01-06] MEDS: Metoprolol Tartrate 50 MG Tab PO SCH ×2 (08:13→20:31)
[2021-01-06] MEDS: amLODIPine 2.5 MG Tab PO SCH (08:13)
[2021-01-06] MEDS: Pramipexole 0.5 MG Tab PO SCH ×2 (08:14→18:08)
[2021-01-06] MEDS: Spironolactone 25 MG Tab PO SCH ×2 (08:14→20:36)
[2021-01-06] MEDS: Primidone 50 MG Tab PO SCH ×2 (08:14→20:31)
[2021-01-06] MEDS: Magnesium Oxide 500 MG Tab PO SCH ×3 (08:14→20:30)
[2021-01-06] MEDS: Acetaminophen 500 MG Tab PO SCH ×3 (08:15→20:31)
[2021-01-06] MEDS: Aspirin 81 MG Tab.EC PO SCH (08:15)
[2021-01-06] MEDS: Acetaminophen/oxyCODONE 325-5 MG Tab PO PRN ×2 (09:17→18:19)
[2021-01-06] MEDS: Cyanocobalamin (Vitamin B12) 500 MCG Tab PO SCH (12:35)
[2021-01-06] MEDS: Multivitamins with Minerals/Iron/Folic Acid/Lycopene Tab PO SCH (12:35)
[2021-01-06] MEDS: Potassium Chloride 10 MEQ Tab.ER PO SCH (12:35)
[2021-01-06] MEDS: hydrOXYzine HCl 25 MG Tab PO PRN (13:13)
[2021-01-06] MEDS: Ondansetron 4 MG Tab.DIS PO PRN (15:19)
[2021-01-06] MEDS: atorvaSTATin 40 MG Tab PO SCH (20:30)
[2021-01-06] MEDS: traZODone 50 MG Tab PO PRN (23:53)
[2021-01-07] MEDS: Loperamide 2 MG Cap PO PRN (02:51)
[2021-01-07] MEDS: Omeprazole 20 MG Cap.CR PO SCH ×3 (06:19→17:28)
[2021-01-07] MEDS: Spironolactone 25 MG Tab PO SCH ×2 (08:21→19:59)
[2021-01-07] MEDS: Gabapentin 300 MG Cap PO SCH ×4 (08:21→20:01)
[2021-01-07] MEDS: Acetaminophen 500 MG Tab PO SCH ×3 (08:21→20:00)
[2021-01-07] MEDS: amLODIPine 2.5 MG Tab PO SCH (08:21)
[2021-01-07] MEDS: Aspirin 81 MG Tab.EC PO SCH (08:21)
[2021-01-07] MEDS: Torsemide 20 MG Tab PO SCH (08:22)
[2021-01-07] MEDS: Iron Polysaccharides Complex 150 MG Cap PO SCH (08:22)
[2021-01-07] MEDS: Fish Oil/Omega-3 Fatty Acids 1 Gm Cap PO SCH ×2 (08:22→20:00)
[2021-01-07] MEDS: Metoprolol Tartrate 50 MG Tab PO SCH ×2 (08:22→20:00)
[2021-01-07] MEDS: Tamsulosin 0.4 MG Cap.ER PO SCH (08:22)
[2021-01-07] MEDS: Losartan 50 MG Tab PO SCH (08:23)
[2021-01-07] MEDS: metFORMIN 500 MG Tab.ER PO SCH (08:23)
[2021-01-07] MEDS: Primidone 50 MG Tab PO SCH ×2 (08:26→20:00)
[2021-01-07] MEDS: Magnesium Oxide 500 MG Tab PO SCH ×3 (08:26→20:01)
[2021-01-07] MEDS: Pramipexole 0.5 MG Tab PO SCH ×2 (09:04→19:58)
[2021-01-07] MEDS: hydrOXYzine HCl 25 MG Tab PO PRN ×2 (11:24→21:32)
[2021-01-07] MEDS: Acetaminophen/oxyCODONE 325-5 MG Tab PO PRN ×2 (11:24→21:31)
[2021-01-07] MEDS: Potassium Chloride 10 MEQ Tab.ER PO SCH (12:18)
[2021-01-07] MEDS: Cyanocobalamin (Vitamin B12) 500 MCG Tab PO SCH (12:18)
[2021-01-07] MEDS: Multivitamins with Minerals/Iron/Folic Acid/Lycopene Tab PO SCH (12:18)
[2021-01-07] MEDS: atorvaSTATin 40 MG Tab PO SCH (19:59)
[2021-01-08] MEDS: traZODone 50 MG Tab PO PRN (00:35)
[2021-01-08] MEDS: Gabapentin 300 MG Cap PO SCH ×5 (00:35→21:53)
[2021-01-08] MEDS: Omeprazole 20 MG Cap.CR PO SCH ×2 (07:43→16:50)
[2021-01-08] MEDS: Aspirin 81 MG Tab.EC PO SCH (08:24)
[2021-01-08] MEDS: metFORMIN 500 MG Tab.ER PO SCH (08:24)
[2021-01-08] MEDS: amLODIPine 2.5 MG Tab PO SCH (08:24)
[2021-01-08] MEDS: Magnesium Oxide 500 MG Tab PO SCH ×3 (08:24→21:51)
[2021-01-08] MEDS: hydrOXYzine HCl 25 MG Tab PO PRN ×2 (08:24→17:42)
[2021-01-08] MEDS: Pramipexole 0.5 MG Tab PO SCH ×2 (08:25→21:51)
[2021-01-08] MEDS: Metoprolol Tartrate 50 MG Tab PO SCH ×2 (08:25→21:53)
[2021-01-08] MEDS: Acetaminophen/oxyCODONE 325-5 MG Tab PO PRN ×2 (08:25→17:41)
[2021-01-08] MEDS: Primidone 50 MG Tab PO SCH ×2 (08:25→21:51)
[2021-01-08] MEDS: Tamsulosin 0.4 MG Cap.ER PO SCH (08:25)
[2021-01-08] MEDS: Torsemide 20 MG Tab PO SCH (08:25)
[2021-01-08] MEDS: Losartan 50 MG Tab PO SCH (08:25)
[2021-01-08] MEDS: Spironolactone 25 MG Tab PO SCH ×2 (08:26→21:52)
[2021-01-08] MEDS: Acetaminophen 500 MG Tab PO SCH ×3 (08:26→21:53)
[2021-01-08] MEDS: Fish Oil/Omega-3 Fatty Acids 1 Gm Cap PO SCH ×2 (08:27→21:51)
[2021-01-08] MEDS: Loperamide 2 MG Cap PO PRN ×2 (10:37)
[2021-01-08] MEDS: Potassium Chloride 10 MEQ Tab.ER PO SCH (11:57)
[2021-01-08] MEDS: Multivitamins with Minerals/Iron/Folic Acid/Lycopene Tab PO SCH (11:57)
[2021-01-08] MEDS: Cyanocobalamin (Vitamin B12) 500 MCG Tab PO SCH (11:57)
[2021-01-08] MEDS: Ondansetron 4 MG Tab.DIS PO PRN (13:18)
[2021-01-08] MEDS: Simethicone 80 MG Tab.Chew PO PRN (21:49)
[2021-01-08] MEDS: atorvaSTATin 40 MG Tab PO SCH (21:52)
[2021-01-09] MEDS: Gabapentin 300 MG Cap PO SCH ×5 (01:28→19:50)
[2021-01-09] MEDS: Simethicone 80 MG Tab.Chew PO PRN ×2 (05:01→15:51)
[2021-01-09] MEDS: Omeprazole 20 MG Cap.CR PO SCH ×2 (07:38→17:06)
[2021-01-09] MEDS: hydrOXYzine HCl 25 MG Tab PO PRN ×2 (07:38→17:45)
[2021-01-09] MEDS: Acetaminophen/oxyCODONE 325-5 MG Tab PO PRN ×2 (07:38→17:43)
[2021-01-09] MEDS: Primidone 50 MG Tab PO SCH ×2 (08:32→21:06)
[2021-01-09] MEDS: Tamsulosin 0.4 MG Cap.ER PO SCH (08:33)
[2021-01-09] MEDS: Losartan 50 MG Tab PO SCH (08:34)
[2021-01-09] MEDS: Fish Oil/Omega-3 Fatty Acids 1 Gm Cap PO SCH ×2 (08:34→21:06)
[2021-01-09] MEDS: Aspirin 81 MG Tab.EC PO SCH (08:34)
[2021-01-09] MEDS: Iron Polysaccharides Complex 150 MG Cap PO SCH (08:35)
[2021-01-09] MEDS: Magnesium Oxide 500 MG Tab PO SCH ×3 (08:35→21:06)
[2021-01-09] MEDS: Torsemide 20 MG Tab PO SCH (08:35)
[2021-01-09] MEDS: Spironolactone 25 MG Tab PO SCH ×2 (08:35→21:06)
[2021-01-09] MEDS: metFORMIN 500 MG Tab.ER PO SCH (08:35)
[2021-01-09] MEDS: Metoprolol Tartrate 50 MG Tab PO SCH ×2 (08:36→21:05)
[2021-01-09] MEDS: Acetaminophen 500 MG Tab PO SCH ×3 (08:36→21:05)
[2021-01-09] MEDS: amLODIPine 2.5 MG Tab PO SCH (08:36)
[2021-01-09] MEDS: Pramipexole 0.5 MG Tab PO SCH ×2 (09:21→18:33)
[2021-01-09] MEDS: Potassium Chloride 10 MEQ Tab.ER PO SCH (12:19)
[2021-01-09] MEDS: Multivitamins with Minerals/Iron/Folic Acid/Lycopene Tab PO SCH (12:19)
[2021-01-09] MEDS: Cyanocobalamin (Vitamin B12) 500 MCG Tab PO SCH (12:19)
[2021-01-09] MEDS: Loperamide 2 MG Cap PO PRN ×2 (19:50→21:12)
[2021-01-09] MEDS: atorvaSTATin 40 MG Tab PO SCH (21:06)
[2021-01-10] MEDS: Gabapentin 300 MG Cap PO SCH ×5 (00:57→20:05)
[2021-01-10] MEDS: Simethicone 80 MG Tab.Chew PO PRN ×2 (04:30→20:00)
[2021-01-10] MEDS: Acetaminophen/oxyCODONE 325-5 MG Tab PO PRN ×3 (07:10→22:23)
[2021-01-10] MEDS: hydrOXYzine HCl 25 MG Tab PO PRN ×3 (07:10→22:22)
[2021-01-10] MEDS: Omeprazole 20 MG Cap.CR PO SCH ×2 (07:11→18:03)
[2021-01-10] MEDS: Torsemide 20 MG Tab PO SCH (08:11)
[2021-01-10] MEDS: metFORMIN 500 MG Tab.ER PO SCH (08:11)
[2021-01-10] MEDS: Fish Oil/Omega-3 Fatty Acids 1 Gm Cap PO SCH ×2 (08:11→20:09)
[2021-01-10] MEDS: Pramipexole 0.5 MG Tab PO SCH ×2 (08:13→18:04)
[2021-01-10] MEDS: Magnesium Oxide 500 MG Tab PO SCH ×3 (08:13→20:09)
[2021-01-10] MEDS: Spironolactone 25 MG Tab PO SCH ×2 (08:13→20:07)
[2021-01-10] MEDS: Tamsulosin 0.4 MG Cap.ER PO SCH (08:13)
[2021-01-10] MEDS: Primidone 50 MG Tab PO SCH ×2 (08:14→20:05)
[2021-01-10] MEDS: Aspirin 81 MG Tab.EC PO SCH (08:14)
[2021-01-10] MEDS: amLODIPine 2.5 MG Tab PO SCH (08:15)
[2021-01-10] MEDS: Metoprolol Tartrate 50 MG Tab PO SCH ×2 (08:15→20:08)
[2021-01-10] MEDS: Losartan 50 MG Tab PO SCH (08:15)
[2021-01-10] MEDS: Acetaminophen 500 MG Tab PO SCH ×3 (08:16→20:03)
--- NOTE | 2021-01-10 11:39 | PCM.DCSUM1 ---
Discharge Summary - Hospital Course Diagnosis: Stroke: No - Discharge Data Discharge Date: 01/11/21 Discharge Disposition: Home, W Home Health Agency 06 Condition: Good - Referral to Home Health Date of Face to Face Encounter: 01/10/21 Reason for Homebound Status: Due to a skilled need of deconditioning, altered gait, weakness Primary Care Physician: Lizzy Chaudhry MD Skilled Need: This is a [id number] encounter for physical nursing and Occupational Therapy. Thank you for your consideration to manage the patient due to his limited and decreased strength/ endurance and muscle weakness as he does experience significant shortness of breath with minimal activities however is improving. Please help develop in-home therapy program to monitor for his unsteady gait, ongoing pain control, health teaching regarding medication management as he was started on 2 new blood pressure medications prior to discha rge. Patient does have significant deconditioning and weakness however has been slowly improving while in [facility]. He has multiple chronic medical conditions such as heart failure hypertension, CKD, diabetes, obesity, neuropathy/tremors that are all comorbid conditions that place the patient at high risk for readmission. Spouse is concerned about pt unable to amado/doff shoes on his own. She is also concerned about his overall level of function, as she limited ability to assist patient with mobility. She wants him back to his functional level last , which he was walking with a cane around [place], riding buses, and going up steps with just little to no assistance. Please develop an in-home therapy program regarding the patient's recumbent bike that he had recently purchased. - Patient Summary/Data Consults: Consultations 12/28/20 12:50 PT Evaluation and Treatment [CONS] Routine 01/01/21 12:11 Consult to Dietary [Consult to Trim Mounter] [CONS] Routine 01/10/21 10:38 Consult to Home Health [CONS] Routine - Patient Instructions Diet: Heart Healthy Diet, Low Sodium Activity: As Tolerated Driving: Do Not Drive Showering/Bathing: May Shower Notify Provider of: Fever, Increased Pain, Nausea and/or Vomiting - Discharge Plan *PRESCRIPTION DRUG MONITORING PROGRAM REVIEWED*: Yes (in [facility] EMR) *COPY OF PRESCRIPTION DRUG MONITORING REPORT IN PATIENT STEVE: Yes Prescriptions/Med Rec: Spironolactone [Aldactone] 25 mg PO BID #60 tablet hydrOXYzine HCL [hydrOXYzine] 25 mg PO Q8HR PRN #30 tablet PRN Reason: Nausea amLODIPine [Norvasc] 5 mg PO DAILY #30 tablet Home Medications: Home Meds Multivitamin [Daily Multiple Vitamin] 1 tab PO DAILY 10/01/16 [History] Losartan Potassium 100 mg PO DAILY 03/06/20 [History] [place]-3S/DHA/Epa/Fish Oil [[place]-3 Fish Oil 1,000 mg Sfgl] 1,000 mg PO BID 03/06/20 [History] Omeprazole 40 mg PO BIDMEALS 03/06/20 [History] Pramipexole [Mirapex] 0.25 mg PO Q12HR 03/06/20 [History] Primidone 50 mg PO Q12HR 03/06/20 [History] hydrOXYzine HCL [Hydroxyzine HCl] 25 mg PO Q6HR PRN 03/06/20 [History] Gabapentin [Neurontin] 600 mg PO 5XDAY@00,08,12,16,20 12/24/20 [History] Loperamide HCl [Imodium A-D] 2 mg PO ASDIRECTED 12/24/20 [History] Fluticasone Propionate [Flonase] 1 spray NASBOTH BID PRN 12/25/20 [History] Acetaminophen [Acetaminophen Extra Strength] 1,000 mg PO Q6HR PRN 12/28/20 [History] Aspirin [Halfprin] 81 mg PO DAILY 12/28/20 [History] Carboxymethylcellulose Sodium [Artificial Tears] 1 drop EYEBOTH Q4HR PRN 12/28/20 [History] Cyanocobalamin (Vitamin B-12) [Vitamin B-12] 250 mcg PO DAILY 12/28/20 [History] Iron Polysaccharide Complex [Poly-Iron] 150 mg PO ASDIRECTED 12/28/20 [History] Magnesium 500 mg BID 12/28/20 [History] Metoprolol Tartrate 100 mg PO BID 12/28/20 [History] Ondansetron [Zofran ODT] 4 mg PO Q4HR PRN 12/28/20 [History] Potassium Chloride 20 meq PO DAILY 12/28/20 [History] Tamsulosin [Flomax] 0.4 mg PO DAILY 12/28/20 [History] Torsemide [Demadex] 20 mg PO DAILY 12/28/20 [History] atorvaSTATin Calcium [Lipitor] 40 mg PO BEDTIME 12/28/20 [History] metFORMIN HCl [Metformin HCl ER] 1,500 mg PO DAILY 12/28/20 [History] oxyCODONE HCl/Acetaminophen [Oxycodone-Acetaminophen 5-325] 1 each PO BID PRN 12/28/20 [History] Spironolactone [Aldactone] 25 mg PO BID #60 tablet 01/10/21 [Rx] amLODIPine [Norvasc] 5 mg PO DAILY #30 tablet 01/10/21 [Rx] hydrOXYzine HCL [hydrOXYzine] 25 mg PO Q8HR PRN #30 tablet 01/11/21 [Rx] Referrals: [facility] [Outside] - Discharge Summary/Plan Comment DC Time >30 min.: Yes Discharge Summary/Plan Comment: Final Dx: Deconditioning/weakness, home health PT OT Chronic conditions: # HFrEF: Continue Torsemide 20mg daily. Daily weights. Echo done 12/26/2020 with normal LV systolic function. EF improved to 55%. unable to assess LV diastolic function. ALAINA stockings for edema #HTN: Continue Losartan 100mg,metoprolol tartrate 100mg BID. Amlodipine, 5 mg p.o. daily, (newly added this admission) Aldactone, 25 mg p.o. twice daily, (newly added and titrated up this admission), BP on DC 121/85, HR 69 # GERD with esophagitis: Omeprazole 40mg BID.Controlled. # Hepatic steatosis/ Transaminitis / elevated alkaline phosphatase: chronic alcohol use/abuse. # CKD, stage 3 # BPH: Tamsulosin 0.4mg daily # Anemia / Macrocytosis: Niferex every other day. B12 or folate not deficient. History of alcohol abuse # DMT2: Controlled. Metformin 1000mg daily. Last A1C 5.7. # HLD: Atorvastatin 40mg. # Hypocalcemia # Obesity- BMI 46 # RLS: Pramipexole 0.25mgBID.Iron supplementation. Controlled. # Tremor: Primidone 50mg BID. # Neuropathy / Chronic lumbar back pain: On pain contract with Dr. Lizzy Hancock. Percocet was receiving QID in [place] however was previously on BID dosing. patient reports increased pain/discomfort and neuropathic pain. Will change to TID PRN (along with hydroxyzine 25mg prn), gabapentin 600mg 5x/d, acetaminophen 1000mg PO TID.Persistentin upper and lower extremities. Followed by pain management with history facet injection 04/11/19 without improvement and history SLADE 05/10/19 with minimal improvement. History Summary: 65 year old male admitted to the [facility] 12/28/2020 for swing bed and rehabilitative cares. Patient presented to [facility] on 12/24/2020 for progressive shortness of breath and weakness. He was admitted at that time with a primary problem of acute CHF exacerbation with also noted electrolytes disturbances: hypokalemia, hypomagnesemia, hypocalcemia. Patient was treated for CHF exacerbation with IV diuresis (Lasix) and electrolyte replacement. On the night of 12/25/2020 patient began having long runs of ventricular tachycardia with a torsades de pointes pattern. He reportedly had 7 of these episodes which were completely asymptomatic with no associated chest pain or other anginal symptoms. Patient was transferred to [facility] on 12/26/2020 due to concerns of recurrent Torsades. Work up showed that one lead showed torsades pattern with other leads showed NSR in 80's. He was asymptomatic before, during, and after the episode. He did not have episodes of torsades or concerning events on telemetry. Cardiology and EP were consulted and reviewed and felt episodes were due to artifact and not true VT. Despite artifact, aggressive electrolyte monitoring and replacement recommended. During hospitalization, UA was done with noted microscopic hematuria >30 RBCs. Hospital course Hospital course went fairly well, he worked with physical therapy strengthening, exercise and ambulation. She had significant deconditioning and weakness on admission and worked quite diligently with PT at a low intensity setting. I was able to monitor a large portion of his physical therapy progress the day prior to discharge, although not optimal appears to be well on his way of his goals however however far from June of last years baseline. Did have elevated blood pressures that required additions of amlodipine and Aldactone. His blood pressure was within normal guidelines upon discharge. Medication changes/adjustments upon discharge --Amlodipine, 5 mg p.o. daily, (newly added this admission) --Aldactone, 25 mg p.o. twice daily, (newly added and titrated up this admission), BP on DC 121/85, HR 69 --Hydroxyzine, 5 mg p.o. every 8 hours as needed, nausea (newly added this admission) --Reviewed PDMP, patient should have home Percocet remaining Disposition --Will be discharge from [facility], completed many of PT goals --Follow-up with Dr. Cat hancock --[facility] referral PT, nursing, OT This is a ztky-ow-vyny encounter on January 10 for physical nursing and Occupational Therapy. Thank you for your consideration to manage the patient due to his limited and decreased strength/ endurance and muscle weakness as he does experience significant shortness of breath with minimal activities however is improving. Please help develop in-home therapy program to monitor for his unsteady gait, ongoing pain control, health teaching regarding medication management as he was started on 2 new blood pressure medications prior to discharge. Patient does have significant deconditioning and weakness however has been slowly improving while in [facility]. He has multiple chronic medical conditions such as heart failure hypertension, CKD, diabetes, obesity, neuropathy/tremors that are all comorbid conditions that place the patient at high risk for readmission. Spouse is concerned about pt unable to amado/doff shoes on his own. She is also concerned about his overall level of function, as she limited ability to assist patient with mobility. She wants him back to his functional level last , which he was walking with a cane around [place], riding buses, and going up steps with just little to no assistance. Please develop an in-home therapy program regarding the patient's recumbent bike that he had recently purchased. Date of service, January 10, 2021, patient was discharged January 11, physical examination was not performed at day of discharge - General Info Date of Service: 01/10/21 Functional Status: Reports: Pain Controlled, Tolerating Diet, Ambulating - Review of Systems General: Reports: Weakness Pulmonary: Reports: Shortness of Breath (This of breath on exertion) Cardiovascular: Reports: Dyspnea on Exertion Gastrointestinal: Denies: Nausea, Vomiting Psychiatric: Reports: No Symptoms - Patient Data Vitals - Most Recent: Last Vital Signs Temp 96.9 F 01/10/21 08:24 Pulse 65 01/10/21 08:24 Resp 19 01/10/21 08:24 BP 152/91 H 01/10/21 08:24 Pulse Ox 95 01/10/21 08:24 Weight - Most Recent: 324 lb 4.8 oz I&O - Last 24 hours: Intake & Output 01/09/21 01/10/21 01/10/21 22:59 06:59 14:59 Intake Total 1840 200 Balance 1840 200 Med Orders - Current: Current Medications Acetaminophen (Acetaminophen 500 Mg Tab) 1,000 mg PO TID [facility] Last Admin: 01/10/21 08:16 Dose: 1,000 mg Documented by: Amlodipine Besylate (Amlodipine 2.5 Mg Tab) 5 mg PO DAILY [facility] Last Admin: 01/10/21 08:15 Dose: 5 mg Documented by: Artificial Tears (Refresh Tears 0.5%) 1 ml EYEBOTH Q4HR PRN PRN Reason: Dry Eyes Aspirin (Aspirin 81 Mg Tab.Ec) 81 mg PO DAILY [facility] Last Admin: 01/10/21 08:14 Dose: 81 mg Documented by: Atorvastatin Calcium (Lipitor) 40 mg PO BEDTIME [facility] Last Admin: 01/09/21 21:06 Dose: 40 mg Documented by: Cyanocobalamin (Cyanocobalamin (Vitamin B12) 500 Mcg Tab) 250 mcg PO DAILY@1200 [facility] Last Admin: 01/09/21 12:19 Dose: 250 mcg Documented by: Fish Oil (Fish Oil/[place]-3 Fatty Acids 1 Gm Cap) 1 gm PO BID [facility] Last Admin: 01/10/21 08:11 Dose: 1 gm Documented by: Fluticasone Propionate (Flonase) 0 gm NASBOTH BID PRN PRN Reason: Allergies Last Admin: 01/05/21 20:18 Dose: 1 spray Documented by: Gabapentin (Gabapentin 300 Mg Cap) 600 mg PO 5XDAY@00,08,12,16,20 [facility] Last Admin: 01/10/21 07:10 Dose: 600 mg Documented by: Guaifenesin/Phenylephrine HCl (Robitussin Dm) 10 ml PO Q6H PRN PRN Reason: Cough Last Admin: 01/06/21 23:53 Dose: 10 ml Documented by: Hydroxyzine HCl (Hydroxyzine Hcl 25 Mg Tab) 25 mg PO Q6HR PRN PRN Reason: Nausea Last Admin: 01/10/21 07:10 Dose: 25 mg Documented by: Loperamide HCl (Loperamide 2 Mg Cap) 2 - 4 mg PO ASDIRECTED PRN PRN Reason: DIARRHEA Last Admin: 01/09/21 21:12 Dose: 2 mg Documented by: Losartan Potassium (Losartan 50 Mg Tab) 100 mg PO DAILY [facility] Last Admin: 01/10/21 08:15 Dose: 100 mg Documented by: Magnesium Oxide (Magnesium Oxide 500 Mg Tab) 500 mg PO TID [facility] Last Admin: 01/10/21 08:13 Dose: 500 mg Documented by: Menthol ([place] Sugar Free) 1 stephen PO ASDIRECTED PRN PRN Reason: Cough Metformin HCl (Metformin 500 Mg Tab.Er) 1,500 mg PO DAILY [facility] Last Admin: 01/10/21 08:11 Dose: 1,500 mg Documented by: Metoprolol Tartrate (Metoprolol Tartrate 50 Mg Tab) 100 mg PO BID [facility] Last Admin: 01/10/21 08:15 Dose: 100 mg Documented by: Multivitamins/Minerals (Multivitamins With Minerals/Iron/Folic Acid/Lycopene Tab) 1 tab PO DAILY@1200 [facility] Last Admin: 01/09/21 12:19 Dose: 1 tab Documented by: Omeprazole (Omeprazole 20 Mg Cap.Cr) 40 mg PO 0730,1730 [facility] Last Admin: 01/10/21 07:11 Dose: 40 mg Documented by: Ondansetron HCl (Ondansetron 4 Mg Tab.Dis) 4 mg PO Q4HR PRN PRN Reason: Nausea/Vomiting Last Admin: 01/08/21 13:18 Dose: 4 mg Documented by: Oxycodone/Acetaminophen (Acetaminophen/Oxycodone 325-5 Mg Tab) 1 tab PO TID PRN PRN Reason: Pain (severe 7-10) Last Admin: 01/10/21 07:10 Dose: 1 tab Documented by: Polysaccharide Iron Complex (Ferrex 150) 150 mg PO Q48H [facility] Last Admin: 01/09/21 08:35 Dose: 150 mg Documented by: Potassium Chloride (Potassium Chloride 10 Meq Tab.Er) 20 meq PO DAILY@1200 [facility] Last Admin: 01/09/21 12:19 Dose: 20 meq Documented by: Pramipexole Dihydrochloride (Pramipexole 0.5 Mg Tab) 0.25 mg PO 0900,1900 [facility] Last Admin: 01/10/21 08:13 Dose: 0.25 mg Documented by: Primidone (Primidone 50 Mg Tab) 50 mg PO BID [facility] Last Admin: 01/10/21 08:14 Dose: 50 mg Documented by: Simethicone (Simethicone 80 Mg Tab.Chew) 80 mg PO QID PRN PRN Reason: Heartburn and/or Stomach upset Last Admin: 01/10/21 04:30 Dose: 80 mg Documented by: Spironolactone (Spironolactone 25 Mg Tab) 12.5 mg PO BID [facility] Last Admin: 01/10/21 08:13 Dose: 12.5 mg Documented by: Tamsulosin HCl (Tamsulosin 0.4 Mg Cap.Er) 0.4 mg PO DAILY [facility] Last Admin: 01/10/21 08:13 Dose: 0.4 mg Documented by: Torsemide (Torsemide 20 Mg Tab) 20 mg PO DAILY [facility] Last Admin: 01/10/21 08:11 Dose: 20 mg Documented by: Trazodone HCl (Trazodone) 25 mg PO BEDTIME PRN PRN Reason: Insomnia Last Admin: 01/08/21 00:35 Dose: 25 mg Documented by: Discontinued Medications Acetaminophen (Tylenol Extra Strength) 500 mg PO Q6H PRN PRN Reason: Pain (mild 1-3) Amlodipine Besylate (Amlodipine 2.5 Mg Tab) 2.5 mg PO DAILY [facility] Last Admin: 01/08/21 08:24 Dose: 2.5 mg Documented by: Cyanocobalamin (Vitamin B12) 250 mcg PO DAILY [facility] Last Admin: 01/01/21 08:48 Dose: 250 mcg Documented by: Fluticasone Propionate (Flonase) 1 gm NASBOTH BID PRN PRN Reason: Allergies Last Admin: 12/28/20 20:24 Dose: 1 spray Documented by: Loperamide HCl (Loperamide 2 Mg Cap) 2 mg PO ASDIRECTED PRN PRN Reason: DIARRHEA Last Admin: 01/07/21 02:51 Dose: 2 mg Documented by: Magnesium Oxide (Magnesium Oxide) 500 mg PO BID [facility] Last Admin: 12/29/20 08:22 Dose: 500 mg Documented by: Multivitamins/Minerals (Centrum) 1 tab PO DAILY [facility] Last Admin: 01/01/21 08:51 Dose: 1 tab Documented by: Torsemide 20 Mg Tab (- Non Form) 1 each PO DAILY [facility] Last Admin: 01/01/21 08:52 Dose: 1 each Documented by: Oxycodone/Acetaminophen (Percocet 325-5 Mg) 1 tab PO BID PRN PRN Reason: Pain (severe 7-10) Last Admin: 12/29/20 08:29 Dose: 1 tab Documented by: Potassium Chloride (Klor-Con M20) 20 meq PO DAILY [facility] Last Admin: 01/01/21 08:50 Dose: 20 meq Documented by: - Exam Quality Assessment: Denies: Supplemental Oxygen General: Reports: Alert, Oriented, Cooperative Lungs: Reports: Clear to Auscultation, Normal Respiratory Effort Cardiovascular: Reports: Regular Rate, Regular Rhythm Back Exam: Denies: CVA Tenderness (L), CVA Tenderness (R)
[2021-01-10] MEDS: Potassium Chloride 10 MEQ Tab.ER PO SCH (11:40)
[2021-01-10] MEDS: Multivitamins with Minerals/Iron/Folic Acid/Lycopene Tab PO SCH (11:40)
[2021-01-10] MEDS: Cyanocobalamin (Vitamin B12) 500 MCG Tab PO SCH (11:40)
[2021-01-10] MEDS: FLUTICASONE PROPIONATE NASBOTH PRN (20:01)
[2021-01-10] MEDS: atorvaSTATin 40 MG Tab PO SCH (20:08)
[2021-01-11] MEDS: Gabapentin 300 MG Cap PO SCH ×3 (01:00→12:03)
[2021-01-11] MEDS: Omeprazole 20 MG Cap.CR PO SCH ×2 (05:08→06:30)
[2021-01-11] MEDS: Simethicone 80 MG Tab.Chew PO PRN (05:08)
[2021-01-11] MEDS: Acetaminophen/oxyCODONE 325-5 MG Tab PO PRN ×2 (06:37→15:03)
[2021-01-11] MEDS: hydrOXYzine HCl 25 MG Tab PO PRN ×2 (06:38→15:03)
[2021-01-11] MEDS: Acetaminophen 500 MG Tab PO SCH ×2 (08:09→14:05)
[2021-01-11] MEDS: metFORMIN 500 MG Tab.ER PO SCH (08:09)
[2021-01-11] MEDS: Losartan 50 MG Tab PO SCH (08:10)
[2021-01-11] MEDS: Tamsulosin 0.4 MG Cap.ER PO SCH (08:10)
[2021-01-11] MEDS: amLODIPine 2.5 MG Tab PO SCH (08:10)
[2021-01-11] MEDS: Spironolactone 25 MG Tab PO SCH (08:11)
[2021-01-11] MEDS: Fish Oil/Omega-3 Fatty Acids 1 Gm Cap PO SCH (08:11)
[2021-01-11] MEDS: Metoprolol Tartrate 50 MG Tab PO SCH (08:11)
[2021-01-11] MEDS: Iron Polysaccharides Complex 150 MG Cap PO SCH (08:11)
[2021-01-11] MEDS: Aspirin 81 MG Tab.EC PO SCH (08:11)
[2021-01-11] MEDS: Magnesium Oxide 500 MG Tab PO SCH ×2 (08:11→14:09)
[2021-01-11] MEDS: Torsemide 20 MG Tab PO SCH (08:11)
[2021-01-11] MEDS: Primidone 50 MG Tab PO SCH (08:12)
[2021-01-11] MEDS: Pramipexole 0.5 MG Tab PO SCH (08:19)
[2021-01-11 11:59] VITALS: BP 93/62; PULSE 68
[2021-01-11] MEDS: Potassium Chloride 10 MEQ Tab.ER PO SCH (12:03)
[2021-01-11] MEDS: Cyanocobalamin (Vitamin B12) 500 MCG Tab PO SCH (12:03)
[2021-01-11] MEDS: Multivitamins with Minerals/Iron/Folic Acid/Lycopene Tab PO SCH (12:03)
== END 2021-01-11 16:45 | disposition home health service (06) | DRG 948 ==
LOC: KA.MS 14:23
PROVIDERS: ADMIT Nurse Practitioner Family; ATTEND Family Medicine
DX: R53.81 Other malaise (principal); I13.0 Hypertensive heart and chronic kidney disease with heart failure and stage 1 through stage 4 chronic kidney disease, or unspecified chronic kidney disease; I50.22 Chronic systolic (congestive) heart failure; Z68.42 Body mass index [BMI] 45.0-49.9, adult; N18.30 Chronic kidney disease, stage 3 unspecified; D63.1 Anemia in chronic kidney disease; E11.22 Type 2 diabetes mellitus with diabetic chronic kidney disease; E78.5 Hyperlipidemia, unspecified; E83.51 Hypocalcemia; E66.9 Obesity, unspecified; G25.81 Restless legs syndrome; K21.00 Gastro-esophageal reflux disease with esophagitis, without bleeding; K76.0 Fatty (change of) liver, not elsewhere classified; E11.42 Type 2 diabetes mellitus with diabetic polyneuropathy; R25.1 Tremor, unspecified; M54.5 Low back pain; G89.29 Other chronic pain; H54.7 Unspecified visual loss; E78.00 Pure hypercholesterolemia, unspecified; G47.30 Sleep apnea, unspecified; N40.1 Benign prostatic hyperplasia with lower urinary tract symptoms; N39.498 Other specified urinary incontinence; M54.2 Cervicalgia; F41.9 Anxiety disorder, unspecified; F32.9 Major depressive disorder, single episode, unspecified; Z96.653 Presence of artificial knee joint, bilateral; E83.42 Hypomagnesemia; R31.29 Other microscopic hematuria; Z79.82 Long term (current) use of aspirin; Z79.84 Long term (current) use of oral hypoglycemic drugs; Z98.890 Other specified postprocedural states; Z90.49 Acquired absence of other specified parts of digestive tract; Z88.0 Allergy status to penicillin; Z88.8 Allergy status to other drugs, medicaments and biological substances; Z79.899 Other long term (current) drug therapy; I25.2 Old myocardial infarction
CPT/HCPCS: 36415; 80048; 80053; 82962; 83735; 97110-GP; 97162-GP; 97530-GP; A9270-GY